=== PATIENT | female | born 1985 | race Caucasian/White ===

== ENCOUNTER 2021-02-25 11:00 | Inpatient (IN) ==
[2021-02-25] MEDS ORDERED: ceFOXitin 2 GM PREMIX 50 ML IVPB ONE (13:00)
[2021-02-25] MEDS ORDERED: Sodium Citrate/Citric Acid LIQ 15 ML UDC ONE (13:32)
[2021-02-25] MEDS ORDERED: EPHEDrine (Pressors) 50 MG/ML VIAL ONE (13:47)
[2021-02-25] MEDS ORDERED: Oxytocin 10 UNITS/ML 1 ML VIAL ONE (13:48)
[2021-02-25] MEDS ORDERED: Morphine PF AMP (0.5MG/ML) 5 MG/10 ML AMP ONE (13:48)
[2021-02-25] MEDS ORDERED: Ondansetron 4 mg VIAL 2 MG/ML 2 ml VIAL ONE (14:33)
[2021-02-25] MEDS ORDERED: Dexamethasone IV 4 MG/ML VIAL 1 ml VIAL ONE (14:33)
[2021-02-25] MEDS ORDERED: Naloxone 0.4 mg VIAL 0.4 mg/ml 1 ml VIAL IV PRN ×2 (14:37→14:38)
[2021-02-25] MEDS ORDERED: fentaNYL 100 mcg/2 ml 50 MCG/ML VIAL IV PRN (14:37)
[2021-02-25] MEDS ORDERED: DiMENhydriNATE IV 50 mg/ml 1 ml VIAL IV PUSH PRN (14:38)
[2021-02-25] MEDS ORDERED: Ondansetron 4 mg VIAL 2 MG/ML 2 ml VIAL IV PRN (14:38)
[2021-02-25] MEDS ORDERED: Acetaminophen IV 1 GM/100ML 100 ML IV ONE (14:38)
[2021-02-25] MEDS ORDERED: Naloxone 4 mg VIAL (10 ml) 2 MG in NS 0.9% 250 ml 250 ML IV PRN (14:38)
[2021-02-25] MEDS ORDERED: HYDROcodone/ACETAMIN 5/325 mg TAB PO PRN (14:38)
[2021-02-25] MEDS ORDERED: diPHENhydraMINE IV 50 MG/ML 1 ml VIAL (BENADRYL) IV PRN (14:38)
[2021-02-25] MEDS ORDERED: Witch Hazel PAD JAR TOPICAL PRN (15:04)
[2021-02-25] MEDS ORDERED: Glycerin ADULT 2.4 gm SUPP PR PRN (15:04)
[2021-02-25] MEDS ORDERED: Dibucaine 1% OINT 28.35 GM TUBE PR PRN (15:04)
[2021-02-25] MEDS ORDERED: Tetan/Diph/Pertus SYR(Tdap) 0.5 ML SYR(BOOSTRIX) use SYR contains LATEX IM ONE (15:04)
[2021-02-25] MEDS ORDERED: Lactated Ringers 1000 ml BAG 1,000 ML IV SCH (16:00)
[2021-02-25] MEDS ORDERED: Oxytocin in LR 20 UNITS/1,000 ML BAG IVPB SCH (16:00)
[2021-02-25 16:07] LABS: Urine Appearance Clear; Urine Bilirubin Negative (Negative); Urine Blood Negative (Negative); Urine Color Straw; Urine Glucose Negative (Negative); Urine Ketones Negative (Negative); Urine Nitrite Negative (Negative); Urine Protein Negative (Negative); Urine Specific Gravity 1.003 (1.002-1.030); Urine Urobilinogen Negative (Negative)
[2021-02-26 06:57] LABS: ABS Lymphocytes 1.9 10^3/ul (1.0-4.8); ABS Monocytes 0.9 10^3/ul (0-0.8); ABS Neutrophils 13.5 10^3/ul (1.5-7.7); Eosinophil % 0.1 %; Hematocrit 25 % (35-47); Hemoglobin 8.7 g/dL (12.0-16.0); Lymphocyte % 11.6 %; Mean Corpuscular HGB Conc 34 g/dL (31-36); Mean Corpuscular Hemoglobin 31 pg (27-31); Mean Corpuscular Volume 92 fL (80-97); Platelet Count 238 10^3/uL (150-450); Red Blood Count 2.77 10^6 /uL (3.70-4.87); Red Cell Distribution Width 13 % (10-15); White Blood Count 16.4 10^3/uL (3.5-10.8)
[2021-02-27 09:31] VITALS: BP 104/68
== END 2021-02-27 14:45 | disposition home or self-care (01) | DRG 540 ==
LOC: MCHOB 12:10
PROVIDERS: ADMIT Obstetrics & Gynecology; ATTEND Obstetrics & Gynecology